=== PATIENT | male | born 1975 | race Caucasian/White ===

== ENCOUNTER 2017-07-19 04:58 | Emergency (ER) | payer BC, OTHER ==
[~2017-07-19] VITALS: Ht 160 cm; Wt 95.0 kg
[~2017-07-19 04:58] MED LIST: FIORICET PO; IBUP-1542 PO
[2017-07-19 05:01] VITALS: Ht 160 cm; Wt 95.0 kg
--- NOTE | 2017-07-19 07:10 | RADRPT ---
PROCEDURE: Right shoulder. CLINICAL INDICATION: Pain. TECHNIQUE: Three views of the right shoulder. COMPARISON: None. FINDINGS: There is no fracture, dislocation or bone destruction. The joint spaces are within normal limits. Bone mineralization is within normal limits. There is no radiopaque foreign body or abnormal calcif ication. IMPRESSION: Unremarkable right shoulder. .Derik Tinoco MD, MD Date Time Electronically viewed and signed by .Derik Tinoco MD, on 07/19/2017 07:09 .T/
[2017-07-19] MEDS ORDERED: NAPR-260 PO (07:22)
--- NOTE | 2017-07-19 09:12 | ERD ---
ER Documentation Chief Complaint Date/Time DATE: 07/19/17 TIME: 09:08 Chief Complaint jumped off his truck landed on rt shoulder, c/o pain. HPI 41-year-old male coming in complaining of right shoulder pain after he fell off his truck bed yesterday. Patient's taken ibuprofen with no alleviation of symptoms. Denies numbness or tingling to extremity. Pain is worse with elevation of arm. Patient denies any head injury or loss of consciousness. Medical history: DM with use of insulin and pills. Does not know last sugar. NKDA Surgical history: Denies Social history: Denies ROS All systems reviewed and are negative except as per history of present illness. Medications Home Meds Active Scripts Naproxen* (Naprosyn*) 500 Mg Tablet, 500 MG PO BID Y for PAIN AND/OR INFLAMMATION, #30 TAB Prov:MEGAN JOSEPH PA-C 07/19/17 Ibuprofen* (Motrin*) 600 Mg Tab, 600 MG PO Q6, #30 TAB Prov:GABRIELLA WOLF PA-C 07/16/16 Acetamin/Butalbital/Caffeine* (Fioricet*) 1 Tab Tab, 1 TAB PO Q6H Y for PAIN, # 30 TAB Prov:GABRIELLA WOLF PA-C 07/16/16 Allergies Allergies: Coded Allergies: No Known Allergy (Unverified , 07/19/17) PMhx/Soc Medical and Surgical Hx: pt denies Medical Hx, pt denies Surgical Hx History of Surgery: No Anesthesia Reaction: No Hx Neurological Disorder: No Hx Respiratory Disorders: No Hx Cardiac Disorders: No Hx Psychiatric Problems: No Hx Miscellaneous Medical Probl: No Hx Alcohol Use: No Hx Substance Use: No Hx Tobacco Use: No Smoking Status: Never smoker Physical Exam Vitals Vital Signs Date Time Temp Pulse Resp B/P Pulse Ox O2 Delivery O2 Flow Rate FiO2 07/19/17 05:01 97.0 94 18 127/72 98 Physical Exam GENERAL: The patient is well-appearing, well-nourished, in no acute distress CHEST: Clear to auscultation bilaterally. There are no rales, wheezes or rhonchi. HEART: Regular rate and rhythm. No murmurs, clicks, rubs or gallops. No S3 or S4. EXTREMITIES: Normal range of motion of the right upper extremity. Strength 5 out of 5. Normal radial ulnar and median nerve innervation. Tenderness to palpation over the right AC joint. No crepitus or deformities noted over the right clavicle. NEUROLOGIC: Alert and oriented. Cranial nerves II through XII intact. Motor strength in all 4 extremities with 5 out of 5 strength. Sensation grossly intact. Normal speech and gait. Babinski negative. DTR 2+ throughout. SKIN: There is no apparent rash or petechiae. The skin is warm and dry. Procedures/MDM DIAGNOSTIC IMAGING REPORT Patient: ANNA MERCHANT : 1975 Age: 41 Sex: M MR #: [id number] DOS: 07/19/17611 Ordering MD: MAURICE JOSEPH PA-C Location: [facility] Room/Bed: PROCEDURE: Right shoulder. CLINICAL INDICATION: Pain. TECHNIQUE: Three views of the right shoulder. COMPARISON: None. FINDINGS: There is no fracture, dislocation or bone destruction. The joint spaces are within normal limits. Bone mineralization is within normal limits. There is no radiopaque foreign body or abnormal calcification. IMPRESSION: Unremarkable right shoulder. MDM: 41-year-old male complaining of right shoulder. I have low suspicion for acute fracture dislocation. Patient's x-rays within normal limits and exam was not concerning. I have low suspicion for tendon or ligament rupture. Patient has normal range of motion of the right upper extremity. I have low suspicion for neurodeficit as patient's neuro exam is within normal limits. I believe patient sustained contusions to the left shoulder and would benefit from pain medication. Patient is told to follow-up with Ortho if symptoms do not improve. I recommend patient to only wear shoulder sling when absolutely necessary and to continue moving right arm to prevent adhesive capsulitis. All questions answered at time of discharge. Patient discharged with strict ER precautions. Departure Diagnosis: Primary Impression: Shoulder injury Condition: Stable Patient Instructions: Shoulder Contusion Referrals: [facility] YOU HAVE RECEIVED A MEDICAL SCREENING EXAM AND THE RESULTS INDICATE THAT YOU DO NOT HAVE A CONDITION THAT REQUIRES URGENT TREATMENT IN THE EMERGENCY DEPARTMENT. FURTHER EVALUATION AND TREATMENT OF YOUR CONDITION CAN WAIT UNTIL YOU ARE SEEN IN YOUR DOCTORS OFFICE WITHIN THE NEXT 1-2 DAYS. IT IS YOUR RESPONSIBILITY TO MAKE AN APPOINTMENT FOR FOLOW-UP CARE. IF YOU HAVE A PRIMARY DOCTOR --you should call your primary doctor and schedule an appointment IF YOU DO NOT HAVE A PRIMARY DOCTOR YOU CAN CALL OUR PHYSICIAN REFERRAL HOTLINE AT IF YOU CAN NOT AFFORD TO SEE A PHYSICIAN YOU CAN CHOSE FROM THE FOLLOWING [facility] [address] [facility] [address] [facility] [facility] [address] [facility] [address] [facility] [address] [facility] [address] [facility]. [facility]. [address] Additional Instructions: FOLLOW UP WITH YOUR PRIMARY CARE PHYSICIAN TOMORROW.Return to this facility if you are not improving as expected. MEGAN JOSEPH PA-C Jul 19, 2017 09:11
== END 2017-07-19 07:30 | disposition home or self-care (01) ==
LOC: FTE 04:58
DX: S49.91XA Unspecified injury of right shoulder and upper arm, initial encounter (principal); E11.9 Type 2 diabetes mellitus without complications; W06.XXXA Fall from bed, initial encounter; Y92.9 Unspecified place or not applicable; Z79.4 Long term (current) use of insulin